=== PATIENT | male | born 1960 | race Caucasian/White ===

== ENCOUNTER 2016-08-04 13:43 | Outpatient (CLI) ==
[2013-04-30 18:53] VITALS: BMI 32.4
--- NOTE | 2016-08-04 15:08 | DI ---
EXAM: Cervical spine radiographs. HISTORY: Neck pain. COMPARISON: 04/30/2013. TECHNIQUE: 5 views. FINDINGS: Alignment is grossly normal. There is straightening of the normal lordosis which is stab le from prior study. There is mild loss of disc height at C4-5 and C5-6. Disc heights are otherwis e normal. Mild endplate osteophyte formation, uncovertebral hypertrophy and facet arthropathy noted , similar to the prior study, which probably cause some neural foraminal narrowing. No fracture or subluxation identified. Prevertebral soft tissues are unremarkable. Lung apices are clear. IMPRESSION: Stable multilevel degenerative changes.
--- NOTE | 2016-08-04 15:11 | DI ---
EXAM: Radiographs, lumbar spine HISTORY: Back pain. Previous lumbar surgery. COMPARISON: Abdominal CT 08/30/2013. TECHNIQUE: Three views. FINDINGS: Posterior lumbar interbody fusion and laminectomy changes seen from L4-S1. Hardware appe ars intact. Alignment is grossly normal. The vertebral body heights are maintained. There is gene rally mild loss of disc height throughout the lower thoracic and lumbar spine with multilevel endpla te osteophyte formation and facet arthropathy. No fracture identified. Sacral arcuate lines are in tact. Aortic atherosclerotic calcifications are present. IMPRESSION: 1. Postsurgical changes L4-S1 as described. 2. Multilevel degenerative disc disease and facet arthropathy.
--- NOTE | 2016-08-04 15:14 | DI ---
EXAM: THORACIC SPINE HISTORY: Back pain FINDINGS: Thoracic spine three-view. No comparison. Bridging lateral and anterior osteophytic spu rring of the spine. No loss of vertebral body height. Subtle scoliosis. No acute fracture is seen . Diffuse degenerative endplate changes, mild to moderate. IMPRESSION: Diffuse degenerative changes with no acute bony abnormality identified.
== END 2016-08-04 13:44 | disposition home or self-care (01) ==
LOC: RAD 13:43
PROVIDERS: ATTEND Internal Medicine
DX: M54.9 Dorsalgia, unspecified (principal); M54.2 Cervicalgia; Z98.890 Other specified postprocedural states